=== PATIENT | female | born 1960 | race Caucasian/White ===

== ENCOUNTER 2018-02-13 05:27 | Inpatient (IN) | payer OTHER ==
--- NOTE | 2018-02-04 11:05 | RADIOLOGY REPORT (SQ) ---
EXAM DESCRIPTION: CHEST PA/LATERAL COMPLETED DATE/TIME: 02/04/2018 10:51 am REASON FOR STUDY: PRE-OP M17.12 UNILATERAL PRIMARY OSTEOARTHRITIS, LEFT KNEE COMPARISON: None. NUMBER OF VIEWS: Two view. TECHNIQUE: Frontal and lateral radiographic views of the chest acquired. LIMITATIONS: None. FINDINGS: LUNGS AND PLEURA: No opacities, masses or pneumothorax. No pleural effusion. Attenuated bl ood vessels and flattened maisha-diaphragms. MEDIASTINUM AND HILAR STRUCTURES: No masses. No contour abnormalities. HEART AND VASCULAR STRUCTURES: Heart normal in size and contour. No evidence for failure. BONES: No acute findings. HARDWARE: None in the chest. OTHER: No other significant finding. IMPRESSION: COPD. NO ACUTE RADIOGRAPHIC FINDING IN THE CHEST. TECHNICAL DOCUMENTATION: JOB ID: [id number] [employer]- All Rights Reserved Reading location - IP/workstation name: [email or web address]
[2018-02-04 11:41] LABS: APPEARANCE,URINE CLEAR; BILIRUBIN,URINE NEGATIVE (NEGATIVE); COLOR,URINE YELLOW; GLUCOSE, URINE NEGATIVE (NEGATIVE); KETONES,URINE NEGATIVE (NEGATIVE); LEUKOCYTE ESTERASE,URINE NEGATIVE (NEGATIVE); NITRITE,URINE NEGATIVE (NEGATIVE); PROTEIN,URINE NEGATIVE (NEGATIVE); URINE SPECIFIC GRAVITY 1.012; UROBILINOGEN,URINE NEGATIVE mg/dL (<2.0)
[~2018-02-13 05:27] MED LIST: BUPIVACAINE INJ/PF LIPOSOME/PF 266 MG/20 ML SDV IJ PRN; CEFAZOLIN 2 GM/D5W RTU 2 GM/50 ML RTUPB IV PRN; IBUPROFEN 800 MG/NS 250 ML IV PRN; LACTATED RINGERS 1000 ML IV PRN; LANSOPRAZOLE 15 MG TAB.RAP.DR PO PRN; LIDOCAINE 0.5% INJ-PF (5 MG/ML) 50 ML SDV SUBCUT PRN; OXYCODONE HCL SR 10 MG TABLET PO PRN
[2018-02-13] MEDS ORDERED: MIDAZOLAM 2 MG/2 ML INJ ONE (06:42)
[2018-02-13] MEDS ORDERED: FENTANYL CITRATE INJ/PF 100 MCG/2 ML AMPUL ONE (06:42)
[2018-02-13] MEDS ORDERED: PROPOFOL INJ 200 MG/20 ML VIAL IV ONE (06:42)
[2018-02-13] MEDS ORDERED: ACETAMINOPHEN 1,000 MG/100 ML RTUPB IV ONE (06:42)
[2018-02-13] MEDS ORDERED: BUPIVACAINE HCL/DEX-WATER/PF 15 MG/2 ML AMPULE ONE (06:59)
[2018-02-13] MEDS ORDERED: THROMBIN (BOVINE) 5000 UNIT EPITAXIS KIT ONE (07:10)
[2018-02-13] MEDS ORDERED: THROMBIN (BOVINE) TOPICAL 20000 UNIT VIAL ONE (07:10)
[2018-02-13] MEDS ORDERED: BUPIVACAINE INJ/PF LIPOSOME/PF 266 MG/20 ML SDV ONE (07:10)
[2018-02-13] MEDS ORDERED: TRANEXAMIC ACID INJ/PF 1,000 MG/10 ML SDV IV ONE (07:11)
[2018-02-13] MEDS ORDERED: DEXMEDETOMIDINE INJ 80 MCG/20 ML VIAL IV ONE (07:23)
[2018-02-13] MEDS ORDERED: MEPERIDINE HCL/PF INJ 25 MG/1 ML DISP.SYRIN IV PRN (08:04)
[2018-02-13] MEDS ORDERED: FENTANYL CITRATE INJ/PF 100 MCG/2 ML AMPUL IV PRN ×3 (08:04)
[2018-02-13] MEDS ORDERED: PROMETHAZINE HCL INJ 25 MG/1 ML VIAL IV PRN ×2 (08:04)
[2018-02-13] MEDS ORDERED: DIPHENHYDRAMINE HCL 50 MG/ML VIAL IV PRN (08:04)
[2018-02-13] MEDS ORDERED: MAG HYDROX/AL HYDROX/SIMETH SUSP 30 ML UDCUP PO PRN (10:28)
[2018-02-13] MEDS ORDERED: RINGERS SOLUTION,LACTATED 1,000 ML IV PRN (10:28)
[2018-02-13] MEDS ORDERED: ONDANSETRON HCL INJ/PF 4 MG/2 ML SDV IV PRN (10:28)
[2018-02-13] MEDS ORDERED: ACETAMINOPHEN 325 MG TABLET PO PRN (10:28)
[2018-02-13] MEDS ORDERED: ZOLPIDEM TARTRATE 5 MG PO PRN (10:35)
--- NOTE | 2018-02-13 10:42 | Operative Report ---
Operative Report DATE OF SURGERY: 02/13/18 PREOPERATIVE DIAGNOSIS: Left knee osteoarthritis POSTOPERATIVE DIAGNOSIS: Same OPERATION: Left total knee arthroplasty SURGEON: VICENTE BARBER ANESTHESIA: GA COMPLICATIONS: None ESTIMATED BLOOD LOSS: 20 mL INTRAOPERATIVE FINDINGS: As above PROCEDURE: Patient received preoperative antibiotics and was taken to the operating room where she received spinal anesthetic. Patient was placed supine position and a thigh tourniquet was applied to left lower extremity. A bump was applied under buttocks and then the left lower extremity was prepped and draped in a normal sterile surgical fashion. Timeout was done identifying the left knee as the correct site. Esmarch was used to exsanguinate the extremity and the tourniquet was inflated at 300 mmHg. Of note we deflated tourniquet at the end of the procedure at 97 minutes. Midline incision was done over the knee and dissection was taken down to the retinaculum and extensor mechanism and a paramedial arthrotomy was done exposing the knee. Patient had [id number] osteoarthritis as confirmed by x-ray with mild joint effusion. We then proceeded to do a medial release and excision of the medial meniscus and lateral meniscus. We moved remove the fat pad and then we flexed the knee at 90 and then remove the ACL and PCL as well. We subluxed the tibia anteriorly and placed the retractors and proceeded to do our tibial cut first. We drilled intramedullary and placed our intramedullary guide and pin the guide by measuring off the medial side which was the low side. We proceeded to do our tibial cut successfully. I was satisfied with the cut so I then proceeded to turn my attention to the femoral side and drilled intramedullary and then placed my intramedullary guide to do my distal femoral cut. We proceeded to us to pin it in place and then do our use a saw to do my distal femoral cut. Once I was satisfied with my distal femoral cut I removed the guide and then use a spacer to confirm proper balance. Initially I felt that my extension gap was balanced with 9 mm spacer. This was removed and I did proceed to size and do my 4-in-1 cutting block of the femur. I measured and used a size 3 and proceeded to do my 4 and 1 cuts. I then placed the experimental box tester and then do the resected my box portion with a receptive saw and osteotome. I trialed he 3 femur l also went with a size 3 tibia and 9 spacer. I was satisfied with the flexion extension side proceeded to do my patellar cut using the guide. The patella measured 20 mm and we proceeded to resect 8 mm and left 12 mm behind after my cut was completed. I drilled the holes and placed the trial component 29mm patella and placed in range of motion. I was satisfied with her range of motion and stability so I proceeded to remove all the implants and opened final components of the tibial tray, femur and patella button. I still use the trialed spacers at the end for repeat examination. Once I used copious irrigation and pulse lavage to clean out the bone I then proceeded to mix cement and appropriately cement the tibial component first and remove the excess cement. I then cemented the femoral component and remove the excess cement. I placed a trial spacer and cemented my patellar button. We waited until the cement had hardened and then needed to inject Exparel in the posterior capsule and periosteum. I then proceeded to put the final polyethylene spacer that measured 9 mm at this point I proceeded to do my closure where I used #1 Vicryl for the arthrotomy and quadriceps tendon. I used thrombin for the knee and then I proceeded to close the subcutaneous fat with 0 Vicryl and 2-0 Vicryl for dermis and lino for skin. 4 x 4 dressing and OpSite dressing was applied the extremity was wrapped with soft roll and Afshin bandage. Tourniquet was let down and drapes were removed. Patient was then transferred to PACU in stable condition.
--- NOTE | 2018-02-13 11:27 | RADIOLOGY REPORT (SQ) ---
EXAM DESCRIPTION: KNEE LEFT 2 VIEWS COMPLETED DATE/TIME: 02/13/2018 10:49 am REASON FOR STUDY: Post OP -Long Cassette in PACU M17.12 UNILATERAL PRIMARY OSTEOARTHRITIS, LEFT KNE E COMPARISON: None. NUMBER OF VIEWS: Two view(s). TECHNIQUE: Digital radiographic images of the left knee post-procedure. LIMITATIONS: None. FINDINGS: BONES: No worrisome or unexpected findings post-procedure. DEVICE: Total knee arthroplasty. SOFT TISSUES: No worrisome findings. Expected postoperative soft tissue changes. IMPRESSION: SATISFACTORY POSTOPERATIVE LEFT KNEE. TECHNICAL DOCUMENTATION: JOB ID: [id number] [employer]- All Rights Reserved Reading location - IP/workstation name: [email or web address]
[2018-02-13] MEDS ORDERED: CEFAZOLIN 2 GM/D5W RTU 2 GM/50 ML RTUPB IV SCH (12:00)
[2018-02-13] MEDS ORDERED: ZOLPIDEM TARTRATE 5 MG TABLET PO PRN (12:03)
[2018-02-13] MEDS ORDERED: OXYCODONE HCL SR 10 MG TABLET PO ONE (12:45)
[2018-02-13] MEDS ORDERED: OXYCODONE HCL IR 5 MG TABLET ONE (12:49)
[2018-02-13] MEDS: OXYCODONE HCL IR 5 MG TABLET PO PRN ×2 (13:57→17:51)
[2018-02-13] MEDS: SENNOSIDES/DOCUSATE 8.6-50 MG 1 EACH TABLET PO SCH (17:51)
[2018-02-13] MEDS: OXYCODONE HCL SR 10 MG TABLET PO SCH (21:11)
[2018-02-13] MEDS: CEFAZOLIN 2 GM/D5W RTU 2 GM/50 ML RTUPB IV SCH (21:11)
[2018-02-13] MEDS ORDERED: NALTREXONE HCL PO SCH (22:00)
[2018-02-13] MEDS ORDERED: BUPROPION HCL PO SCH (22:00)
[2018-02-14] MEDS: OXYCODONE HCL IR 5 MG TABLET PO PRN ×4 (02:54→19:18)
[2018-02-14] MEDS: CEFAZOLIN 2 GM/D5W RTU 2 GM/50 ML RTUPB IV SCH ×4 (02:55→21:13)
[2018-02-14 04:50] LABS: HEMATOCRIT 37.3 % (36.0-47.0); HEMOGLOBIN 13.1 g/dL (12.0-15.5); MEAN CORPUSCULAR HEMOGLOBIN 31.5 pg (27.0-33.4); MEAN CORPUSCULAR HGB CONC 35.2 g/dL (32.0-36.0); MEAN CORPUSCULAR VOLUME 89 fl (80-97); PLATELET COUNT 248 10^3/uL (150-450); RED BLOOD COUNT 4.17 10^6/uL (3.72-5.28); RED CELL DISTRIBUTION WIDTH 13.8 % (11.5-14.0); WHITE BLOOD COUNT 15.2 10^3/uL (4.0-10.5)
[2018-02-14 05:10] LABS: ANION GAP 14 (5-19); BLOOD UREA NITROGEN 12 mg/dL (7-20); CALCIUM 9.3 mg/dL (8.4-10.2); CARBON DIOXIDE 27 mmol/L (22-30); CHLORIDE 95 mmol/L (98-107); GLUCOSE 136 mg/dL (75-110); SODIUM 135.7 mmol/L (137-145)
[2018-02-14 05:13] LABS: POTASSIUM 2.9 mmol/L (3.6-5.0)
[2018-02-14] MEDS: ASPIRIN 81 MG TABLET, CHEWABLE PO SCH (09:33)
[2018-02-14] MEDS: SENNOSIDES/DOCUSATE 8.6-50 MG 1 EACH TABLET PO SCH ×2 (09:33→18:16)
[2018-02-14] MEDS: POTASSIUM CHLORIDE 10 MEQ CAPSULE.ER PO SCH (09:34)
[2018-02-14] MEDS: AMLODIPINE BESYLATE 5 MG TABLET PO SCH (09:34)
[2018-02-14] MEDS: LOSARTAN POTASSIUM 50 MG TABLET PO SCH (09:34)
[2018-02-14] MEDS: OXYCODONE HCL SR 10 MG TABLET PO SCH ×2 (09:35→21:13)
[2018-02-14] MEDS: ARIPIPRAZOLE 5 MG TABLET PO SCH (09:35)
[2018-02-14] MEDS: CHLORTHALIDONE 25 MG TABLET PO SCH (09:36)
[2018-02-14] MEDS: SERTRALINE HCL 50 MG TABLET PO SCH (09:36)
[2018-02-14] MEDS ORDERED: SERTRALINE HCL 200 MG PO SCH (10:00)
[2018-02-14] MEDS: PRENATAL VITAMIN W DHA CAPSULE PO SCH (10:00)
[2018-02-14] MEDS ORDERED: ARIPIPRAZOLE 5 MG PO SCH (10:00)
[2018-02-14] MEDS ORDERED: (PENDING PHARMACY ID) (Multivit-Min/Iron Fum/Folic Ac [Multi-Vitamin-Minerals Tablet] 1 EA PO SCH (10:00)
[2018-02-14] MEDS ORDERED: (PENDING PHARMACY ID) (Losartan Potassium [Losartan Potassium] 100 MG) PO SCH (10:00)
--- NOTE | 2018-02-14 12:47 | PDOC PROGRESS REPORT ---
Subjective Progress Note for:: 02/14/18 Subjective:: Patient pain adequately controlled. No issues overnight. Participate with therapy today. Was able to do stairs. Reason For Visit: LEFT TOTAL KNEE ARTHROPLASTY Physical Exam Vital Signs: Temp Pulse Resp BP Pulse Ox 36.8 C 94 19 138/81 H 96 02/14/18 06:52 02/14/18 06:52 02/14/18 06:52 02/14/18 06:52 02/14/18 06:52 Intake & Output 02/13/18 02/14/18 02/15/18 06:59 06:59 06:59 Intake Total 0 2818 Output Total 50 Balance 0 2768 Weight 118.7 kg General appearance: PRESENT: no acute distress Adult Front & Back Image: 1 - Dressing dry clean and intact. Able to passively extend her to -10 and flexes to about 90. Actively she can only do -30 of extension to about 90 of flexion. Neurovascular intact distally with soft cast. Negative Homans sign. Results Laboratory Results: 02/14/18 04:33 02/14/18 04:33 02/14/18 02/14/18 04:33 04:33 WBC 15.2 H RBC 4.17 Hgb 13.1 Hct 37.3 MCV 89 MCH 31.5 MCHC 35.2 RDW 13.8 Plt Count 248 Sodium 135.7 L Potassium 2.9 L* Chloride 95 L Carbon Dioxide 27 Anion Gap 14 BUN 12 Creatinine 0.61 Est GFR ( Amer) > 60 Est GFR (Non-Af Amer) > 60 Glucose 136 H Calcium 9.3 Impressions: Chest X-Ray 02/04/18 10:42 IMPRESSION: COPD. NO ACUTE RADIOGRAPHIC FINDING IN THE CHEST. Knee X-Ray 02/13/18 10:34 IMPRESSION: SATISFACTORY POSTOPERATIVE LEFT KNEE. Status: Image reviewed by me Assessment & Plan - Diagnosis (1) S/P total knee replacement Qualifiers: Laterality: left Qualified Code(s): Z96.652 - Presence of left artificial knee joint Is this a current diagnosis for this admission?: Yes Plan: Patient is postop day 1 from left total knee arthroplasty. Participate with therapy and will likely be discharged tomorrow to home with home health. Change the dressing at discharge. Apply OpSite dressing and then removed in 4- 5 days. At that point she can then shower. Weight-bear as tolerated with range of motion as tolerated. We will follow-up in 10-14 days. Prescription for walker, commode, pain prescription and Xarelto are in the chart.
[2018-02-15] MEDS: CEFAZOLIN 2 GM/D5W RTU 2 GM/50 ML RTUPB IV SCH ×2 (04:27→10:31)
[2018-02-15] MEDS: OXYCODONE HCL IR 5 MG TABLET PO PRN (04:28)
[2018-02-15 05:15] LABS: HEMATOCRIT 34.8 % (36.0-47.0); HEMOGLOBIN 12.4 g/dL (12.0-15.5); MEAN CORPUSCULAR HEMOGLOBIN 31.8 pg (27.0-33.4); MEAN CORPUSCULAR HGB CONC 35.6 g/dL (32.0-36.0); MEAN CORPUSCULAR VOLUME 89 fl (80-97); PLATELET COUNT 221 10^3/uL (150-450); RED CELL DISTRIBUTION WIDTH 13.7 % (11.5-14.0); WHITE BLOOD COUNT 14.5 10^3/uL (4.0-10.5)
[2018-02-15] MEDS: SENNOSIDES/DOCUSATE 8.6-50 MG 1 EACH TABLET PO SCH (10:30)
[2018-02-15] MEDS: OXYCODONE HCL SR 10 MG TABLET PO SCH (10:31)
[2018-02-15] MEDS: ASPIRIN 81 MG TABLET, CHEWABLE PO SCH (10:31)
[2018-02-15] MEDS: LOSARTAN POTASSIUM 50 MG TABLET PO SCH (10:32)
[2018-02-15] MEDS: SERTRALINE HCL 50 MG TABLET PO SCH (10:33)
[2018-02-15] MEDS: CHLORTHALIDONE 25 MG TABLET PO SCH (10:33)
[2018-02-15] MEDS: PRENATAL VITAMIN W DHA CAPSULE PO SCH (10:33)
[2018-02-15] MEDS: ARIPIPRAZOLE 5 MG TABLET PO SCH (10:34)
[2018-02-15] MEDS: AMLODIPINE BESYLATE 5 MG TABLET PO SCH (10:34)
[2018-02-15] MEDS: POTASSIUM CHLORIDE 10 MEQ CAPSULE.ER PO SCH (10:34)
--- NOTE | 2018-02-15 10:59 | PDOC PROGRESS REPORT ---
Subjective Progress Note for:: 02/15/18 Subjective:: Patient lying in bed comfortably. Was able to ambulate 100 feet today with physical therapy. States pain is controlled. Denies fever chills or sweats. Reason For Visit: LEFT TOTAL KNEE ARTHROPLASTY Physical Exam Vital Signs: Temp Pulse Resp BP Pulse Ox 99.3 F 94 18 122/82 95 02/15/18 07:24 02/15/18 07:24 02/15/18 07:24 02/15/18 07:24 02/15/18 07:24 Intake & Output 02/14/18 02/15/18 02/16/18 06:59 06:59 06:59 Intake Total 2818 1532 Output Total 50 Balance 2768 1532 Weight 118.7 kg 116.3 kg Musculoskeletal exam: PRESENT: other - Left knee: Dressing change today. Serosanguineous drainage on the wound site with appropriate swelling postoperatively. No calf tenderness. Negative Homans. Intact plantar flexion/ dorsiflexion. No sensory deficits. Results Laboratory Results: 02/15/18 04:30 02/15/18 04:30 WBC 14.5 H RBC 3.90 Hgb 12.4 Hct 34.8 L MCV 89 MCH 31.8 MCHC 35.6 RDW 13.7 Plt Count 221 Impressions: Chest X-Ray 02/04/18 10:42 IMPRESSION: COPD. NO ACUTE RADIOGRAPHIC FINDING IN THE CHEST. Knee X-Ray 02/13/18 10:34 IMPRESSION: SATISFACTORY POSTOPERATIVE LEFT KNEE. Assessment & Plan - Diagnosis (1) S/P total knee replacement Qualifiers: Laterality: left Qualified Code(s): Z96.652 - Presence of left artificial knee joint Is this a current diagnosis for this admission?: Yes Plan: Postop day #2 status post left total knee arthroplasty 1. Pain control 2. Xarelto for DVT prophylaxis 3. Will recheck patient's potassium if within normal limits patient will be orthopedically stable for discharge to home.
[2018-02-15 11:00] LABS: ANION GAP 15 (5-19); BLOOD UREA NITROGEN 11 mg/dL (7-20); CALCIUM 9.2 mg/dL (8.4-10.2); CARBON DIOXIDE 28 mmol/L (22-30); CHLORIDE 90 mmol/L (98-107); GLUCOSE 120 mg/dL (75-110)
[2018-02-15 11:16] LABS: POTASSIUM 2.9 mmol/L (3.6-5.0)
[2018-02-15] MEDS ORDERED: POTASSIUM CHLORIDE 10 MEQ CAPSULE.ER PO ONE (14:00)
[2018-02-15 14:33] VITALS: BP 129/79
== END 2018-02-15 15:33 | disposition home health service (06) | DRG 470 ==
LOC: INOR 05:27 → 4S 13:30
PROVIDERS: ADMIT Orthopaedic Surgery; ATTEND Orthopaedic Surgery
PROC: 0SRD0J9 Replacement of Left Knee Joint with Synthetic Substitute, Cemented, Open Approach (ICD-10-PCS; principal; 2018-02-13 07:30)
DX: M17.12 Unilateral primary osteoarthritis, left knee (principal); K21.9 Gastro-esophageal reflux disease without esophagitis; F31.9 Bipolar disorder, unspecified; I10 Essential (primary) hypertension; G47.30 Sleep apnea, unspecified; F10.20 Alcohol dependence, uncomplicated; Z79.899 Other long term (current) drug therapy; Z82.49 Family history of ischemic heart disease and other diseases of the circulatory system; Z82.61 Family history of arthritis
CPT/HCPCS: 01402; 36415; 71046; 80048; 81001; 84132; 85027; 88304; 88311; 94799; C1713; C1776; C9290; J0131; J0690; J1741; J2250; J2704; J3010; J3490; J7050

== ENCOUNTER → 2018-03-12 | Outpatient (CLI) | payer OTHER ==
--- NOTE | 2018-03-12 17:06 | WOMENS IMAGING REPORT ---
EXAM DESCRIPTION: BILAT SCREENING MAMMO W/CAD COMPLETED DATE/TIME: 03/12/2018 11:12 am REASON FOR STUDY: BILATERAL SCREENING MAMMO/Z12.31 Z12.31 ENCNTR SCREEN MAMMOGRAM FOR MALIGNANT NE OPLASM OF REED COMPARISON: 2016 TECHNIQUE: Standard craniocaudal and mediolateral oblique views of each breast recorded using ODECa l acquisition. LIMITATIONS: None. FINDINGS: No masses, calcifications or architectural distortion. No areas of suspicion. Read with the assistance of CAD. .[facility] - R2 Cenova Version 1.3 .[facility] - R2 Cenova Version 1.3 .[facility] - R2 Cenova Version 2.4 .[facility] [place] R2 Cenova Version 2.4 .[facility] - R2 Stone Lathe Operator Version 9.2 IMPRESSION: NORMAL MAMMOGRAM. BIRADS 1. BREAST DENSITY: a. The breasts are almost entirely fatty. BIRAD: 1 NEGATIVE RECOMMENDATION: ROUTINE SCREENING COMMENT: The patient has been notified of the results by letter per [place] requirements. Additional no tification policies are in place for contacting patient with suspicious or incomplete findings. Quality ID #[id number]: The [employer] recommends an annual screening mammogram for women aged 40 years or over. This facility utilizes a reminder system to ensure that all patients receive reminder letters, and/or direct phone calls for appointments. This includes reminders for routine scr eening mammograms, diagnostic mammograms, or other Breast Imaging Interventions when appropriate. Th is patient will be placed in the appropriate reminder system. The [employer] (A[employer]) has developed recommendations for screening MRI of the breast s in certain patient populations, to be used in conjunction with mammography. Breast MRI surveillanc e may be appropriate for women with more than 20% lifetime risk of developing breast cancer as deter mined by genetic testing, significant family history of the disease, or history of mantle radiation f or Hodgkins Disease. ACR Practice Guidelines 2008. TECHNICAL DOCUMENTATION: FINDING NUMBER: (1) ASSESSMENT: (1) JOB ID: [id number] [employer]- All Rights Reserved Reading location - IP/workstation name: [email or web address]
== END ==
LOC: WI 11:09
PROVIDERS: ATTEND Internal Medicine
DX: Z12.31 Encounter for screening mammogram for malignant neoplasm of breast (principal)
CPT/HCPCS: 77067

== ENCOUNTER → 2020-04-08 | Outpatient (CLI) | payer OTHER ==
--- NOTE | 2020-04-09 15:37 | WOMENS IMAGING REPORT ---
EXAM DESCRIPTION: 3D SCREENING MAMMO BILAT IMAGES COMPLETED DATE/TIME: 04/08/2020 11:44 am REASON FOR STUDY: Z12.31 ENCNTR SCREEN MAMMOGRAM FOR MALIGNANT NEOPLASM OF BREAST Z12.31 ENCNTR SCR EEN MAMMOGRAM FOR MALIGNANT NEOPLASM OF REED COMPARISON: 2018 EXAM PARAMETERS: Views: Standard craniocaudal and mediolateral oblique views of each breast recorded using digital acquisition and breast tomosynthesis. Read with the assistance of CAD. .[facility] - [employer] Laboratory Manager Version 9.2 LIMITATIONS: None. FINDINGS: No suspicious masses, suspicious calcifications or architectural distortion. No areas of c oncern. IMPRESSION: NEGATIVE MAMMOGRAM. BIRADS 1. BREAST DENSITY: b. There are scattered areas of fibroglandular density. BIRAD: ASSESSMENT: 1 NEGATIVE RECOMMENDATION: ROUTINE SCREENING COMMENT: The patient has been notified of the results by letter per MQSA requirements. Additional no tification policies are in place for contacting patient with suspicious or incomplete findings. Quality ID #[id number]: The [employer] recommends an annual screening mammogram for women aged 40 years or over. This facility utilizes a reminder system to ensure that all patients receive reminder letters, and/or direct phone calls for appointments. This includes reminders for routine scr eening mammograms, diagnostic mammograms, or other Breast Imaging Interventions when appropriate. Th is patient will be placed in the appropriate reminder system. TECHNICAL DOCUMENTATION: FINDING NUMBER: (1) ASSESSMENT: (1) JOB ID: [id number] [employer]- All Rights Reserved Reading location - IP/workstation name: [email or web address]
== END ==
LOC: WI 11:11
PROVIDERS: ATTEND Internal Medicine
DX: Z12.31 Encounter for screening mammogram for malignant neoplasm of breast (principal)
CPT/HCPCS: 77063; 77067